=== PATIENT | female | born 1995 | race African-American/Black ===

== ENCOUNTER → 2017-10-04 | Outpatient (CLI) | payer BC | END | disposition home or self-care (01) | LOC: US 15:33 | DX: O26.842 Uterine size-date discrepancy, second trimester (principal); Z3A.17 17 weeks gestation of pregnancy | CPT/HCPCS: 76805; 76817 ==

== ENCOUNTER → 2017-12-20 | Outpatient (CLI) | payer BC ==
[2015-06-29 17:39] VITALS: BP 153/90
[2017-12-20 13:32] LABS: BASO % 0 % (0-3); EOS % 0 % (0-3); HEMATOCRIT 32.4 % (36.0-47.0); HEMOGLOBIN 10.8 g/dL (12.0-15.5); LYMPH # 1.7 x10^3/uL (1.0-4.8); LYMPH % 21 % (24-48); MEAN CORPUSCULAR HEMOGLOBIN 27 pg (25-35); MEAN CORPUSCULAR HGB CONC 33 g/dL (31-37); MEAN CORPUSCULAR VOLUME 82 fL (79-100); MONO # 0.6 x10^3/uL (0.0-1.1); MONO % 8 % (0-9); NEUT # 5.8 x10^3uL (1.8-7.7); NEUT % 71 % (31-73); PLATELET COUNT 133 x10^3/uL (140-400); RED BLOOD COUNT 3.96 x10^6/uL (3.50-5.40); RED CELL DISTRIBUTION WIDTH 14.6 % (11.5-14.5); WHITE BLOOD COUNT 8.1 x10^3/uL (4.0-11.0)
== END | disposition home or self-care (01) ==
LOC: LAB 12:14
PROVIDERS: ATTEND Obstetrics & Gynecology
DX: O09.93 Supervision of high risk pregnancy, unspecified, third trimester (principal); Z3A.28 28 weeks gestation of pregnancy
CPT/HCPCS: 36415; 82950; 85025

== ENCOUNTER → 2019-08-22 | Outpatient (CLI) | payer BC ==
[2018-03-16 15:00] VITALS: BP 144/88
[~2019-08-22] MED LIST: IBUP-1027 PO
--- NOTE | 2019-08-23 05:03 | RAD ---
Study: US PREG MORE THAN OR EQ TO 14 WKS Clinical Indication: Size of fetus and consistent with dates. Comparison: None during this gestation. Technique: Multiple grayscale images, color Doppler, and M-mode images of the uterus are obtained. Findings: Single intrauterine gestation in cephalic presentation. The placenta is posterior/fundal in location without evidence of placenta previa noting that the cervix with somewhat difficult to visualize. The amount of amniotic fluid appears appropriate. Amniotic fluid index is 10.3 cm. The cervix was not able to be seen. Biometrical data: BPD = 5.9 cm for 24 weeks 0 days. HC = 21.97 cm for 24 weeks 0 days. AC = 18.5 cm for 23 weeks 2 days. FL = 4.3 cm for 24 weeks 0 days. CI ratio = 80.2. HC/AC ratio = 1.19. FL/HC ratio = 19.6. FL/AC ratio = 23.2. Overall, the estimated sonographic gestational age is 23 weeks 6 days for an estimated date of delivery of 12/13/2019. No last menstrual period was made available. Estimated weight is 620 g +/- 92 g. A 4 chamber heart is identified with positive cardiac activity. The estimated heart rate is 155 beats per minute. Bilateral upper and lower extremities are identified. There is a three-vessel cord with cord insertion visualized. stomach and urinary bladder are identified. Both kidneys are seen. The spine and brain are unremarkable. No gross anatomic abnormalities are identified. Impression: 1. Single live intrauterine gestation with estimated sonographic gestational age of 23 weeks 6 days corresponding to an estimated delivery date of 12/13/2019. weight estimate of 620 g. 2. Very active fetus but predominantly cephalic in presentation. The cervix was not able to be visualized. The placenta is posterior/fundal. Amniotic fluid volume is within normal limits. No anatomic abnormality was identified. Electronically signed by: DAX AVILES MD (08/23/2019 5:00 AM) [id number]
== END | disposition home or self-care (01) ==
LOC: US 15:57
PROVIDERS: ATTEND Obstetrics & Gynecology
DX: O26.842 Uterine size-date discrepancy, second trimester (principal); Z3A.23 23 weeks gestation of pregnancy
CPT/HCPCS: 76805

== ENCOUNTER 2019-12-07 21:48 | Inpatient (IN) | payer BC ==
[~2019-12-07] VITALS: Ht 170.2 cm; Wt 72.6 kg
[2019-12-07] MEDS ORDERED: MAG HYDROX/ALUMINUM HYD/SIMETH 30 ML ORAL.SUSP PO PRN (22:00)
[2019-12-07] MEDS ORDERED: ACETAMINOPHEN 325 MG TABLET. PO PRN (22:00)
[2019-12-07] MEDS ORDERED: IV RINGERS,LACTATED 1000ML 1,000 ML IV PRN (22:00)
--- NOTE | 2019-12-07 22:10 | NUR ---
24 yo at 39.1 weeks gestation presents to labor and delivery with complaints of labor contractions that started at 2100. Dr Christiansen notified pt in active labor. Admitted for labor.
[2019-12-07 22:14] LABS: BILIRUBIN,URINE NEGATIVE (NEG); CLARITY,URINE CLEAR; COLOR,URINE YELLOW; NITRITE,URINE NEGATIVE (NEG); PROTEIN,URINE 30 mg/dL (NEG-TRACE)
[2019-12-07] MEDS ORDERED: LIDOCAINE 1% PF 30 ML VIAL. INJ PRN (22:15)
[2019-12-07] MEDS ORDERED: 0.9 % SODIUM CHLORIDE 10 ML DISP.SYRIN. IV PRN (22:15)
[2019-12-07] MEDS ORDERED: ONDANSETRON PF 4 MG/2 ML VIAL. IVP PRN (22:15)
[2019-12-07] MEDS ORDERED: OXYTOCIN 30 UNIT/500 ML PREMIX 500 ML IV PRN (22:15)
[2019-12-07] MEDS ORDERED: BUTORPHANOL 2 MG/ML VIAL. IVP PRN ×2 (22:15)
[2019-12-07] MEDS ORDERED: TERBUTALINE 1 MG/ML VIAL. SQ PRN (22:15)
[2019-12-07] MEDS ORDERED: IBUPROFEN 400 MG TABLET. PO PRN (22:15)
[2019-12-07 22:20] LABS: SQUAMOUS EPITHELIAL CELL,UR MOD /LPF
[2019-12-07 22:21] LABS: BACTERIA,URINE FEW /HPF (0-FEW); BARBITURATES NEG (NEG); BENZODIAZEPINES NEG (NEG); CANNABINOIDS POS (NEG); COCAINE NEG (NEG); METHADONE NEG (NEG); OPIATES NEG (NEG); PHENCYCLIDINE NEG (NEG); RBC,URINE >40 /HPF (0-2); WBC,URINE >40 /HPF (0-4)
[2019-12-07 22:22] LABS: AMPHETAMINE/METHAMPHETAMINE NEG (NEG)
[2019-12-07 22:39] LABS: BASO % 0 % (0-3); EOS % 0 % (0-3); HEMATOCRIT 35.5 % (36.0-47.0); LYMPH # 2.2 x10^3/uL (1.0-4.8); LYMPH % 26 % (24-48); MEAN CORPUSCULAR HEMOGLOBIN 28 pg (25-35); MEAN CORPUSCULAR HGB CONC 34 g/dL (31-37); MEAN CORPUSCULAR VOLUME 82 fL (79-100); MONO # 0.5 x10^3/uL (0.0-1.1); MONO % 6 % (0-9); NEUT # 5.8 x10^3/uL (1.8-7.7); NEUT % 67 % (31-73); PLATELET COUNT 133 x10^3/uL (140-400); RED BLOOD COUNT 4.33 x10^6/uL (3.50-5.40); RED CELL DISTRIBUTION WIDTH 14.9 % (11.5-14.5); WHITE BLOOD COUNT 8.6 x10^3/uL (4.0-11.0)
[2019-12-07 22:53] LABS: ALBUMIN 2.8 g/dL (3.4-5.0); ALBUMIN/GLOBULIN RATIO 0.7 (1.0-1.7); CALCIUM 8.3 mg/dL (8.5-10.1); CREATININE 0.6 mg/dL (0.6-1.0); GFR 148.6; POTASSIUM 4.2 mmol/L (3.5-5.1); TOTAL BILIRUBIN 0.2 mg/dL (0.2-1.0); TOTAL PROTEIN 6.7 g/dL (6.4-8.2)
[2019-12-07] MEDS: fentaNYL PF VIAL 100 MCG/2 ML VIAL IVP PRN (23:06)
[2019-12-08] VITALS (7 sets, daily range): BP systolic 131–144; BP diastolic 70–88
[2019-12-08] MEDS: fentaNYL PF VIAL 100 MCG/2 ML VIAL IVP PRN (00:17)
--- NOTE | 2019-12-08 01:17 | PDOC1 ---
OB - History Hx of Present Care: Good Care Ultrasounds: Normal mid trimester US Obstetrical Complications: None Medical Complications: None Past Family/Social History * Past Medical, Surgical, Family and Obstetric Histories reviewed from chart. Rubella: Immune RPR/VDRL: Negative GBS Status: Negative HBsAG: Negative OB - Chief Complaint & HPI Date of Admission: Date of Admission: Dec 07, 2019 at 21:48 Chief Complaint/History : 2 Para: 1 EGA: 39 Reason for admission: active labor Admission Nurse Assessment Rev: Yes OB - Admission Exam Physical Exam Vitals: VS - Last 72 Hours, by Label Date Time Temp Pulse Resp B/P (MAP) Pulse Ox O2 Delivery O2 Flow Rate FiO2 12/08/19 00:17 18 Room Air 12/08/19 00:08 98.1 71 20 144/70 (94) 97 Room Air 98.1 12/07/19 23:06 20 Room Air HEENT: Normal Heart: Regular Rate Lungs: Clear Abdomen: Gravid, Non tender, Soft Extremities: Edema Reflexes: Normal Cervical Dilatation: 2cm Effacement: 50% Station: -3 Membranes: Intact Heart Rate: Normal Accelerations: Accelerations Present Decelerations: No decelerations Contractions on Admission: < 5 Minutes Apart Intensity: Moderate Text A: 39 wks IUP Active labor P: Admit labor management. SOLE MICHAEL Jr, MD Dec 08, 2019 01:17
--- NOTE | 2019-12-08 01:19 | PDOC ---
VAGINAL DELIVERY DATE DATE: 12/08/19 TIME: 01:17 : 2 Para: 2 EGA: 39 VAGINAL DELIVERY: VTX VACCUM ASSISTED: No PLACENTA: Spontaneous 8/9 SEX: Male WEIGHT Weight [ 5 lbs 8 oz. ] Nuchal Cord: No Amniotic Fluid: Clear PAIN: Natural EPISIOTOMY: No EXTENSION: No EBL 300 ml COMPLICATIONS none CONDITION pt. stable Signs of Intrauterine Infectio: None Shoulder Dystocia: No SOLE MICHAEL Jr, MD Dec 08, 2019 01:19
[2019-12-08] MEDS ORDERED: MAG HYDROX/ALUMINUM HYD/SIMETH 30 ML ORAL.SUSP PO PRN (01:30)
[2019-12-08] MEDS ORDERED: diphenhydrAMINE HCL 25 MG CAPSULE PO PRN (01:30)
[2019-12-08] MEDS ORDERED: MMR per PROTOCOL. MC PRN (01:30)
[2019-12-08] MEDS ORDERED: oxyCODONE/APAP 5/325 1 TAB TABLET PO PRN (01:30)
[2019-12-08] MEDS ORDERED: HYDROCORTISONE 1% TOPICAL OINTMENT 30GM TUBE. TP PRN (01:30)
[2019-12-08] MEDS ORDERED: DOCUSATE SODIUM 100 MG CAPSULE. PO PRN (01:30)
[2019-12-08] MEDS ORDERED: BENZOCAINE 20% TOPICAL AEROSOL SPRAY 57GM CAN. TP PRN (01:30)
[2019-12-08] MEDS ORDERED: OXYTOCIN 30 UNIT/500 ML PREMIX 500 ML IV PRN (01:30)
[2019-12-08] MEDS ORDERED: MAGNESIUM HYDROXIDE 2,400 MG/30 ML ORAL.SUSP. PO PRN (01:30)
[2019-12-08] MEDS ORDERED: PHENYLEPH/MINERAL OIL/PETROLAT RECTAL OINTMENT TUBE. RC PRN (01:30)
[2019-12-08] MEDS ORDERED: ACETAMINOPHEN 325 MG TABLET. PO PRN (01:30)
[2019-12-08] MEDS ORDERED: ZOLPIDEM 5 MG TABLET. PO PRN (01:30)
[2019-12-08] MEDS ORDERED: SIMETHICONE 80 MG TAB.CHEW PO PRN (01:30)
[2019-12-08] MEDS ORDERED: 0.9 % SODIUM CHLORIDE 10 ML DISP.SYRIN. IV PRN (01:30)
[2019-12-08] MEDS ORDERED: TDaP (Adacel) per PROTOCOL. MC PRN (01:30)
[2019-12-08] MEDS: IBUPROFEN 400 MG TABLET. PO PRN ×2 (02:08→19:57)
[2019-12-08] MEDS: MULTIVITAMIN with MINERAL TABLET. PO SCH (09:41)
[2019-12-09 05:40] LABS: BASO % 0 % (0-3); EOS # 0.1 x10^3/uL (0.0-0.7); EOS % 1 % (0-3); HEMATOCRIT 34.3 % (36.0-47.0); HEMOGLOBIN 11.3 g/dL (12.0-15.5); LYMPH # 2.6 x10^3/uL (1.0-4.8); LYMPH % 30 % (24-48); MEAN CORPUSCULAR HEMOGLOBIN 27 pg (25-35); MEAN CORPUSCULAR HGB CONC 33 g/dL (31-37); MEAN CORPUSCULAR VOLUME 83 fL (79-100); MONO # 0.5 x10^3/uL (0.0-1.1); MONO % 6 % (0-9); NEUT # 5.5 x10^3/uL (1.8-7.7); NEUT % 63 % (31-73); PLATELET COUNT 127 x10^3/uL (140-400); RED BLOOD COUNT 4.15 x10^6/uL (3.50-5.40); RED CELL DISTRIBUTION WIDTH 15.2 % (11.5-14.5); WHITE BLOOD COUNT 8.7 x10^3/uL (4.0-11.0)
[2019-12-09 06:10] VITALS: BP 135/94
[2019-12-09] MEDS ORDERED: FERROUS SULFATE 325 MG TABLET. PO SCH (08:00)
[2019-12-09] MEDS: MULTIVITAMIN with MINERAL TABLET. PO SCH (09:13)
--- NOTE | 2019-12-09 09:16 | PDOC3 ---
OB DISCHARGE SUMMARY DATE OF ADMISSION: 12/07/19 DATE OF DISCHARGE: 12/09/19 REASON FOR ADMISSION: Onset of labor INTRAPARTUM PROCEDURES: Spontanous Vag Deliv DISCHARGE DIAGNOSIS: Term Delivered DISCHARGE INFORMATION: Activity (ad zoie), Diet (regular), Instructions (pelvic rest x 6 wks) HOSPITAL COURSE Term gestation delivered vaginally without complications. SOLE MICHAEL Jr, MD Dec 09, 2019 09:16
[2019-12-09] MEDS ORDERED: IBUP-1027 PO (09:18)
--- NOTE | 2019-12-09 09:18 | DISCH ---
DISCHARGE INSTRUCTIONS Condition on Discharge Condition on Discharge: Stable Activity After Discharge Activity Instructions for Disc: Activity as tolerated Lifting Instructions after Dis: No heavy lifting Driving Instructions after Dis: Do not drive today Diet after Discharge Diet after Discharge: Regular Contacting the [facility] after DC Call your doctor for: Concerns you may have Follow-Up Follow up with: Dr. Christiansen in 6 wks SOLE CHRISTIANSEN Jr, MD Dec 09, 2019 09:18
[2019-12-09 10:21] VITALS: BP 132/81
[2019-12-09 16:51] VITALS: BP 131/81
--- NOTE | 2019-12-09 16:52 | NUR ---
Discharge Discharge instructions given to patient at this time. No questions or concerns noted. To follow up with DR Christiansen in 6 weeks. Patient left with mother and her child secured in car seat. Patient had all belongings and ambulated to her car.
--- NOTE | 2019-12-12 09:08 | PATHOLOGY ---
[facility] Accession Number: [id number] . 01 Material submitted: . placenta - PLACENTA WITH CORD . 01 Clinical history: . Gestational age 39.2 weeks; EDC 12/13/19; ; Apgars 9, 9, 9 . 02 Diagnosis: 318 gram term placenta of an estimated 39 and 2/7 weeks gestation with attached membranes and umbilical cord: - Small for estimated gestational age placenta (approximate third percentile). LBQ 12/12/2019 0845 Local . 02 Comment: There is no evidence of an acute chorioamnionitis or villitis. No infarcts are identified. (JPM/db; 12/11/2019) . 02 Electronically signed: . Luis Miguel Fischer MD, Pathologist NPI- [id number] . 01 Gross description: . The specimen is received in formalin, labeled "Henna Jimenes, placenta". Received is a dewitt placenta with attached membranes and umbilical cord with a trimmed placental weight of 318 g and measuring 16.8 x 13.2 x 2.2 cm in greatest dimensions. The membranes are pink-miguel and translucent in appearance, and the site of membrane rupture is 3.1 cm from the placental margin. The surface is intact displaying a normal arborizing vasculature pattern. The trivascular umbilical cord measures 37.1 cm in length by up to 1.5 cm in diameter and inserts centrally, 4.6 cm from the closest placental margin. The umbilical cord is pale miguel to blue-ward in appearance with moderate helical twisting. The maternal surface is intact and complete; a minimal amount of adherent blood coagulum is seen on the surface. Sectioning reveals red-brown to light brown cut surfaces displaying a single possible pale miguel lesion measuring 1.0 cm, which encompasses less than 5% of the total placental volume. The specimen is submitted representatively as follows: . A1 proximal umbilical cord and surface vessels A2 umbilical cord and membrane roll A3-A4 title insurance sales representative sections of maternal surface, with the possible lesion submitted in cassette A3. (CAA; 12/10/2019) QAC/QAC 12/10/2019 1658 Local . 02 Pathologist provided ICD-10: Z3A.39, Z37.0 . 02 CPT . 688483 Specimen Comment: A courtesy copy of this report has been sent to [phone] Specimen Comment: Report sent to Performed at: 01 [facility] [address], [place] [id number] MD Isaac Germain MD Phone: [phone] Performed at: 02 [facility] [address] [place], [place] [id number] MD Luis Miguel Fischer MD Phone: [phone]
== END 2019-12-09 16:54 | disposition home or self-care (01) | DRG 807 ==
LOC: 3 SO LND 21:48 → OBSVTOIN 21:48 → 3 NORTH 12-08 03:55
PROVIDERS: ADMIT Obstetrics & Gynecology; ATTEND Obstetrics & Gynecology
PROC: 10E0XZZ Delivery of Products of Conception, External Approach (ICD-10-PCS; principal; 2019-12-08)
DX: O80 Encounter for full-term uncomplicated delivery (principal); Z37.0 Single live birth; Z3A.39 39 weeks gestation of pregnancy; Z20.828 Contact with and (suspected) exposure to other viral communicable diseases
CPT/HCPCS: 36415; 80053; 80307; 81001; 85025; 86592; 86850; 86900; 86901; 87086; 87426; J2590; J3010; J7120; G0378; U0003-CS

== ENCOUNTER → 2021-05-11 | Outpatient (CLI) | payer BC ==
[~2021-05-11] MED LIST changes: +OXYC-630 PO
== END ==
LOC: LAB 14:08
PROVIDERS: ATTEND Obstetrics & Gynecology
DX: Z01.812 Encounter for preprocedural laboratory examination (principal); Z20.822 Contact with and (suspected) exposure to COVID-19
CPT/HCPCS: U0003; U0005

== ENCOUNTER 2021-05-13 06:49 | Day surgery (SDC) | payer BC ==
[~2021-05-13] VITALS: Ht 170.2 cm; Wt 59.0 kg
[~2021-05-13 06:49] MED LIST changes: +HYDROmorphone 2 MG/ML INJ. IVP PRN; +IV RINGERS,LACTATED 1000ML 1,000 ML IV SCH; +MORPHINE SULFATE 2 MG/ML INJ. IVP PRN; -OXYC-630 PO; +PROCHLORPERAZINE 10 MG/2 ML VIAL. IVP PRN; +ceFAZolin SODIUM IV Push 1 GM VIAL. IVP PRN; +fentaNYL PF VIAL 100 MCG/2 ML VIAL IVP PRN
[2021-05-13] MEDS ORDERED: ceFAZolin SODIUM IV Push 1 GM VIAL. IVP ONE (07:00)
[2021-05-13 07:21] VITALS: BP 139/91
--- NOTE | 2021-05-13 09:02 | PDOC4 ---
BRIEF OPERATIVE NOTE Date: May 13, 2021 Pre-Op Diagnosis FRANCOIS 1 Post-Op Diagnosis FRANCOIS 1 Procedure Performed Cold Knife Cone Bx Surgeon Dr. Christiansen Anesthesia Type: General Blood Loss 10 ml Specimens Obtained anterior and posterior lip of cervix Findings cervical dysplasia Complications none Operative Note see dictation SOLE CHRISTIANSEN Jr, MD May 13, 2021 09:02
[2021-05-13] MEDS ORDERED: OXYC-630 PO (09:04)
--- NOTE | 2021-05-13 09:06 | DISCH ---
DISCHARGE INSTRUCTIONS Condition on Discharge Condition on Discharge: Stable Activity After Discharge Activity Instructions for Disc: Activity as tolerated Lifting Instructions after Dis: No heavy lifting Driving Instructions after Dis: Do not drive today Diet after Discharge Diet after Discharge: Regular Contacting the [facility] after DC Call your doctor for: Concerns you may have Follow-Up Follow up with: Dr. Christiansen in 2 weeks. SOLE CHRISTIANSEN Jr, MD May 13, 2021 09:06
--- NOTE | 2021-05-13 09:17 | OP ---
DATE OF SURGERY: 05/13/2021 PREOPERATIVE DIAGNOSIS: Cervical intraepithelial neoplasia 1. POSTOPERATIVE DIAGNOSIS: Cervical intraepithelial neoplasia 1. PROCEDURE: Cold knife cone biopsy. SURGEON: Jose Luis Christiansen MD. ANESTHESIA: GETA. ESTIMATED BLOOD LOSS: 10 mL. COMPLICATIONS: None. FINDINGS: Cervical dysplasia. SPECIMENS: Anterior and posterior lip of the cervix. COMPLICATIONS: None. SUMMARY: A 25-year-old with cervical dysplasia, FRANCOIS 1, requiring cervical cone biopsy. She was counseled on the risks, benefits and expectations and voiced clear understanding to proceed. DESCRIPTION OF PROCEDURE: The patient was taken to surgery suite and placed in dorsal lithotomy position. She was prepped with Betadine solution and draped in a sterile fashion. After adequate anesthesia, weighted speculum and right angle were placed vaginally. Anterior lip of the cervix grasped with single tooth tenaculum. Cervix was injected with 1% lidocaine with epinephrine in a circumferential manner, 2-0 Vicryl sutures were placed at the 3 o'clock and 9 o'clock position to help stabilize the cervix. Single tooth tenaculum was removed. Anterior and posterior lip of the cervix was removed in a cone fashion using the cold knife cone, 45-degree angle scalpel. The remaining cervix was cauterized with Bovie cautery. Monsel solution was also applied for better hemostasis. The weighted speculum and right angle were removed. The patient tolerated the procedure well and was taken to recovery room in stable condition. Sponge and needle count correct x 3. FELICIANO DR: Rey TID: [id number]
[2021-05-13 09:45] VITALS: BP 132/74
== END 2021-05-13 10:15 | disposition home or self-care (01) ==
LOC: SURG 06:49
PROVIDERS: ATTEND Obstetrics & Gynecology
DX: N87.0 Mild cervical dysplasia (principal); N87.9 Dysplasia of cervix uteri, unspecified; Z79.899 Other long term (current) drug therapy; Z98.890 Other specified postprocedural states; Z72.89 Other problems related to lifestyle
CPT/HCPCS: 57520; 81025; A4930; J0690